=== PATIENT | male | born 1970 | race Caucasian/White ===

== ENCOUNTER 2016-11-23 20:25 | Emergency (ER) | payer SELFPAY | END 2016-11-23 21:14 | disposition home or self-care (01) | LOC: ER 20:25 | DX: T15.02XA Foreign body in cornea, left eye, initial encounter (principal); F17.220 Nicotine dependence, chewing tobacco, uncomplicated; Z98.890 Other specified postprocedural states; X58.XXXA Exposure to other specified factors, initial encounter; Z23 Encounter for immunization | CPT/HCPCS: 90471 ==

== ENCOUNTER 2017-01-17 22:40 | Emergency (ER) | payer SELFPAY | END 2017-01-17 23:10 | disposition home or self-care (01) | LOC: ER 22:40 | DX: T15.01XA Foreign body in cornea, right eye, initial encounter (principal); H11.31 Conjunctival hemorrhage, right eye; F17.220 Nicotine dependence, chewing tobacco, uncomplicated ==